=== PATIENT | female | born 1980 | race Caucasian/White ===

== ENCOUNTER 2017-03-05 18:27 | Emergency (ER) | payer BC ==
[~2017-03-05] VITALS: Ht 152.4 cm; Wt 50.0 kg
[2017-03-05 18:41] VITALS: BP 170/79; PULSE 130; RESP 18; TEMP 100.7; O2SAT 99
[2017-03-05] MEDS ORDERED: SODIUM CHLOR 0.9% 1000 ML INJ 1,000 ML IV ONE (19:12)
[2017-03-05] MEDS ORDERED: ONDANSETRON HCL 4 MG/2 ML VIAL IVP ONE (19:15)
--- NOTE | 2017-03-05 19:56 | PD ---
HPI . Stomach pains Chief Complaint: Dizziness Time Seen by Provider: 18:49 Travel History International Travel<30 days: No Contact w/Intl Traveler<30days: No Traveled to known affect area: No History of Present Illness HPI 36-year-old female presents complaining of stomach pain. Pain is localized to her navel and started at 3 PM. No radiation. Rates the pain as a 7-8 out of 10. Describes the pain as sharp and lasting 2-3 minutes. She has also had 5 episodes of emesis. Had some previous nausea which is now resolved. Patient's menstrual cycle started on February 15 but she had to take plan B on the . She had another menstrual cycle that started on the February 22 and is now coming to an end. Patient is unsure if this is related. Patient reports she has had similar episodes in the past but they have not been associated with fevers. Her last bowel movement was this morning. She is denying any diarrhea or vaginal bleeding. Reports subjective fevers. [facility] Past Medical History Medical History: Denies Significant Hx Tetanus Vaccination: Unknown ?: Not Past Surgical History Abdominal Surgery: Yes Social History Alcohol Use: No Tobacco Use: Yes Substance Use: No Allergies-Medications (Allergen,Severity, Reaction): Coded Allergies: No Known Allergies (Unverified , 03/05/17) Reported Meds & Prescriptions Reported Meds & Active Scripts Active No Active Prescriptions or Reported Medications Review of Systems Except as stated in HPI: all other systems reviewed are Neg General / Constitutional: Positive: Fever, Chills, Other (fatigue and disorientation) Gastrointestinal: Positive: Nausea, Vomiting, Abdominal Pain Physical Exam Narrative GENERAL: Awake and alert and in no acute distress. SKIN: Warm and dry. HEAD: Atraumatic. Normocephalic. EYES: Pupils equal and round. Extraocular movements are intact. ENT: No nasal bleeding or discharge. Mucous membranes pink and moist. NECK: Trachea midline. Neck is supple. CARDIOVASCULAR: Regular rhythm, tachycardic rate. RESPIRATORY: No accessory muscle use. Lungs are clear with full air movement throughout. GASTROINTESTINAL: Abdomen soft. Mild periumbilical tenderness. No guarding or rebound. Nondistended. MUSCULOSKELETAL: No obvious deformities. No edema. NEUROLOGICAL: Awake and alert. No obvious cranial nerve deficits. Motor grossly within normal limits. Normal speech. PSYCHIATRIC: Appropriate mood and affect; insight and judgment normal. Data Data Last Documented VS Vital Signs Date Time Temp Pulse Resp B/P Pulse Ox O2 Delivery O2 Flow Rate FiO2 03/05/17 18:41 100.7 130 18 170/79 99 Orders Urinalysis - C+S If Indicated (03/05/17 19:12) Sodium Chlor 0.9% 1000 Ml Inj (Ns 1000 M (03/05/17 19:12) Ondansetron Inj (Zofran Inj) (03/05/17 19:15) Ed Urine Pregnancytest Poc (03/05/17 19:12) Ibuprofen (Motrin) (03/05/17 20:30) Labs Laboratory Tests Test 03/05/17 20:00 Urine Color YELLOW Urine Turbidity CLEAR Urine pH 6.0 Urine Specific [place] 1.014 Urine Protein NEG mg/dL Urine Glucose (UA) NEG mg/dL Urine Ketones NEG mg/dL Urine Occult Blood NEG Urine Nitrite NEG Urine Bilirubin NEG Urine Urobilinogen LESS THAN 2.0 MG/DL Urine Leukocyte Esterase NEG Urine RBC 7 /hpf Urine WBC LESS THAN 1 /hpf Urine Squamous Epithelial 1 /hpf Cells Microscopic Urinalysis Comment CULT NOT INDICATED MDM Medical Decision Making Medical Screen Exam Complete: Yes Emergency Medical Condition: Yes Differential Diagnosis Differential diagnosis of abdominal pain includes but is not limited to gastritis, pancreatitis, hepatitis, gastroenteritis, gallbladder disease, constipation, urinary retention, UTI, peptic ulcer disease, diverticulitis or appendicitis Narrative Course Patient presents for evaluation and treatment of periumbilical abdominal pain associated with nausea and vomiting. She is febrile so the most likely diagnosis is viral gastroenteritis. She'll be treated with IV fluids and IV Zofran. UA and hCG are pending. Laboratory Tests Test 03/05/17 20:00 Urine Color YELLOW Urine Turbidity CLEAR Urine pH 6.0 Urine Specific [place] 1.014 Urine Protein NEG mg/dL Urine Glucose (UA) NEG mg/dL Urine Ketones NEG mg/dL Urine Occult Blood NEG Urine Nitrite NEG Urine Bilirubin NEG Urine Urobilinogen LESS THAN 2.0 MG/DL Urine Leukocyte Esterase NEG Urine RBC 7 /hpf Urine WBC LESS THAN 1 /hpf Urine Squamous Epithelial 1 /hpf Cells Microscopic Urinalysis Comment CULT NOT INDICATED test is negative. The patient has had no further emesis in the emergency department. The history, exam, diagnostic testing, and current condition do not suggest any significant pathology to warrant further testing, continued ED treatment, admission, or surgical evaluation at this point. The patient's condition is stable and appropriate for discharge. Diagnosis Primary Impression: Abdominal pain Qualified Code: R10.33 - Periumbilical abdominal pain Additional Impression: Vomiting Qualified Code: R11.2 - Non-intractable vomiting with nausea, unspecified vomiting type Patient Instructions: Abdominal Pain (ED), General Instructions Departure Forms: Tests/Procedures, Work Release Med/Other Pt SpecificInfo: Prescription(s) given Scripts Ondansetron (Zofran)4 Mg Tab4 Mg PO Q6HR PRN (NAUSEA OR VOMITING) #6 TAB Ref 0 Prov:Alisson Murguia MD 03/05/17 Disposition: 01 DISCHARGE HOME Condition: Stable Alisson Murguia MD Mar 05, 2017 19:56
[2017-03-05] MEDS ORDERED: IBUPROFEN 800 MG TAB PO ONE (20:30)
[2017-03-05 20:34] LABS: BLOOD, URINE NEG (NEG); COMMENT (UR) CULT NOT INDICATED; CULTURE IF INDICATED CULT NOT INDICATED; GLUCOSE,URINE NEG (NEG); KETONE, URINE NEG (NEG); NITRITE,URINE NEG (NEG); SQUAMOUS EPITHELIAL CELL URINE 1 /hpf (0-5); URINE COLOR YELLOW (YELLW/STRAW)
[2017-03-05] MEDS ORDERED: ZOFR4TAB PO (20:54)
== END 2017-03-05 21:05 | disposition home or self-care (01) ==
LOC: NEPD 18:27
DX: R10.33 Periumbilical pain (principal); R11.2 Nausea with vomiting, unspecified
CPT/HCPCS: 81001; 84703; 96361; 96374; 99284; J2405; J7030

== ENCOUNTER 2017-05-31 16:48 | Emergency (ER) | payer BC ==
[~2017-05-31] VITALS: Ht 152.4 cm; Wt 51.0 kg
[~2017-05-31 16:48] MED LIST: ZOFR4TAB PO
[2017-05-31 16:50] VITALS: BP 129/82; PULSE 87; RESP 18; TEMP 99.4; O2SAT 99
--- NOTE | 2017-05-31 18:58 | PD ---
HPI Chief Complaint: General Weakness Time Seen by Provider: 18:56 Travel History International Travel<30 days: No Contact w/Intl Traveler<30days: No Traveled to known affect area: No History of Present Illness HPI Patient comes in complaining of generalized weakness ongoing for a week. Patient is concerned she might be diabetic or . Patient denies any pain anywhere. Patient states that she had problems with hypoglycemia as a child and over the past week by time lunch feels like she starts getting a little jittery which doesn't really improve after eating. Patient denies anything making it worse. Denies any chest pain, shortness breath, fevers, loss change in bowel or bladder, numbness or tingling anywhere, headaches, dizziness, abdominal pain, or back pain. PFSH Past Medical History Asthma: Yes Diminished Hearing: No Genitourinary: Yes Tetanus Vaccination: > 5 Years Influenza Vaccination: No ?: Unknown LMP: 05/07/17 : 5 Para: 4 Past Surgical History Abdominal Surgery: Yes Gynecologic Surgery: Yes Social History Alcohol Use: Yes (ocassionally) Tobacco Use: Yes (1/2 pack per day) Substance Use: No Allergies-Medications (Allergen,Severity, Reaction): Coded Allergies: latex (Verified Allergy, Severe, swelling, 05/31/17) swelling Reported Meds & Prescriptions Reported Meds & Active Scripts Active No Active Prescriptions or Reported Medications Review of Systems Except as stated in HPI: all other systems reviewed are Neg Physical Exam Narrative GENERAL: Well-developed, well nourished, in no acute distress, and non-ill appearing. SKIN: Focused skin assessment warm and dry. HEAD: Atraumatic. Normocephalic. EYES: Pupils equal and round. EOMI. No scleral icterus. No injection or drainage. ENT: No nasal bleeding or discharge. Mucous membranes pink and moist. NECK: Trachea midline. No JVD. Supple. No nuclear rigidity. CARDIOVASCULAR: Regular rate and rhythm. No murmur appreciated. RESPIRATORY: No accessory muscle use. No respiratory distress. Clear to auscultation. Breath sounds equal bilaterally. GASTROINTESTINAL: Abdomen soft, non-tender, nondistended, and no guarding. Hepatic and splenic margins not palpable. Normal bowel sounds 4. No pulsatile mass. MUSCULOSKELETAL: No obvious deformities. No clubbing. No cyanosis. No edema. Full range of motion. NEUROLOGICAL: Awake and alert. No obvious cranial nerve deficits. Motor grossly within normal limits. Normal speech. PSYCHIATRIC: Appropriate mood and affect; insight and judgment normal. Data Data Last Documented VS Vital Signs Date Time Temp Pulse Resp B/P (MAP) Pulse Ox O2 Delivery O2 Flow Rate FiO2 05/31/17 20:12 05/31/17 18:59 97.8 78 17 99 05/31/17 16:50 Room Air Orders Orders Basic Metabolic Panel (Bmp) (05/31/17 18:55) Complete Blood Count With Diff (05/31/17 18:55) Urinalysis - C+S If Indicated (05/31/17 18:55) Iv Access Insert/Monitor (05/31/17 18:55) Ecg Monitoring (05/31/17 18:55) Oximetry (05/31/17 18:55) Sodium Chloride 0.9% Flush (Ns Flush) (05/31/17 19:00) Ed Urine Pregnancytest Poc (05/31/17 18:55) Magnesium (Mg) (05/31/17 18:55) Labs Laboratory Tests Test 05/31/17 18:50 05/31/17 19:00 Urine Color LIGHT-YELLOW Urine Turbidity CLEAR Urine pH 6.5 Urine Specific [place] 1.007 Urine Protein NEG mg/dL Urine Glucose (UA) NEG mg/dL Urine Ketones NEG mg/dL Urine Occult Blood NEG Urine Nitrite NEG Urine Bilirubin NEG Urine Urobilinogen LESS THAN 2.0 MG/DL Urine Leukocyte Esterase NEG Urine RBC LESS THAN 1 /hpf Urine WBC LESS THAN 1 /hpf Urine Squamous Epithelial Cells 2 /hpf Microscopic Urinalysis Comment CULT NOT INDICATED White Blood Count 11.9 TH/MM3 Red Blood Count 4.88 MIL/MM3 Hemoglobin 15.5 GM/DL Hematocrit 45.6 % Mean Corpuscular Volume 93.4 FL Mean Corpuscular Hemoglobin 31.7 PG Mean Corpuscular Hemoglobin Concent 33.9 % Red Cell Distribution Width 12.8 % Platelet Count 262 TH/MM3 Mean Platelet Volume 7.4 FL Neutrophils (%) (Auto) 71.9 % Lymphocytes (%) (Auto) 20.8 % Monocytes (%) (Auto) 6.6 % Eosinophils (%) (Auto) 0.5 % Basophils (%) (Auto) 0.2 % Neutrophils # (Auto) 8.6 TH/MM3 Lymphocytes # (Auto) 2.5 TH/MM3 Monocytes # (Auto) 0.8 TH/MM3 Eosinophils # (Auto) 0.1 TH/MM3 Basophils # (Auto) 0.0 TH/MM3 CBC Comment DIFF FINAL Differential Comment Blood Urea Nitrogen 12 MG/DL Creatinine 0.81 MG/DL Random Glucose 108 MG/DL Calcium Level 8.6 MG/DL Magnesium Level 2.3 MG/DL Sodium Level 139 MEQ/L Potassium Level 3.8 MEQ/L Chloride Level 105 MEQ/L Carbon Dioxide Level 28.5 MEQ/L Anion Gap 6 MEQ/L Estimat Glomerular Filtration Rate 81 ML/MIN MDM Medical Decision Making Medical Screen Exam Complete: Yes Emergency Medical Condition: Yes Differential Diagnosis Anemia, , UTI, electrolyte abnormality, other Narrative Course Patient in no obvious distress upon re-evaluation. Patient states that this seems to happen about to start her menstrual cycle. All pertinent laboratory/ Radiology result(s) discussed with patient. Discussed patient with Dr. Mike prior to discharge, who is in agreement with plan of care and disposition. Any questions/concerns in reference to patient diagnosis/ condition discussed and clarified prior to patient's discharge. Reinforced sheer importance of close follow up with patient's primary physician or primary care clinic. Instructed patient to return to ED immediately, if symptoms return/ worsen. Patient showed understanding of above instructions. Further instructions and recommendations were detailed in discharge paperwork. Patient ambulated without difficulty out of ED at discharge. Diagnosis Primary Impression: Generalized weakness Patient Instructions: General Instructions, Weakness (ED) Additional Instructions: Follow-up with your primary care physician next week for reevaluation. Return to the emergency department if symptoms get worse. Scripts No Active Prescriptions or Reported Meds Disposition: 01 DISCHARGE HOME Condition: Stable Neo Velazquez May 31, 2017 18:58
[2017-05-31 18:59] VITALS: BP 119/68; PULSE 78; RESP 17; TEMP 97.8; O2SAT 99
[2017-05-31] MEDS ORDERED: SODIUM CHLORIDE 0.9% FLUSH 10 ML FLUSH IV FLUSH PRN (19:00)
[2017-05-31 19:27] LABS: BLOOD, URINE NEG (NEG); COMMENT (UR) CULT NOT INDICATED; CULTURE IF INDICATED CULT NOT INDICATED; GLUCOSE,URINE NEG (NEG); KETONE, URINE NEG (NEG); NITRITE,URINE NEG (NEG); PH, URINE 6.5 (5.0-8.5); SQUAMOUS EPITHELIAL CELL URINE 2 /hpf (0-5); URINE COLOR LIGHT-YELLOW (YELLW/STRAW)
[2017-05-31 19:29] LABS: AUTOMATED NEUTROPHIL # 8.6 TH/MM3 (1.8-7.7); BASOPHIL % 0.2 % (0.0-2.0); EOSINOPHIL # 0.1 TH/MM3 (0-0.4); EOSINOPHIL % 0.5 % (0.0-4.0); HEMATOCRIT 45.6 % (35.0-46.0); HEMO FLAGS DIFF FINAL; LYMPH % 20.8 % (9.0-44.0); LYMPHOCYTE # 2.5 TH/MM3 (1.0-4.8); MEAN CELL VOLUME 93.4 FL (80.0-100.0); MEAN CORPUSCULAR HEMOGLOBIN 31.7 PG (27.0-34.0); MEAN CORPUSCULAR HGB CONC 33.9 % (32.0-36.0); MONO % 6.6 % (0.0-8.0); NEUT % 71.9 % (16.0-70.0); PLATELET COUNT 262 TH/MM3 (150-450); RED BLOOD COUNT 4.88 MIL/MM3 (4.00-5.30); RED CELL DISTRIBUTION WIDTH 12.8 % (11.6-17.2); WHITE BLOOD COUNT 11.9 TH/MM3 (4.0-11.0)
[2017-05-31 19:45] LABS: BICARBONATE 28.5 MEQ/L (21.0-32.0); MAGNESIUM 2.3 MG/DL (1.5-2.5); POTASSIUM 3.8 MEQ/L (3.5-5.1)
== END 2017-05-31 20:13 | disposition home or self-care (01) ==
LOC: NEPE 16:48
DX: R53.1 Weakness (principal); J45.909 Unspecified asthma, uncomplicated; Z72.0 Tobacco use
CPT/HCPCS: 80048; 81001; 83735; 84703; 85025; 99283

== ENCOUNTER → 2017-07-17 | Outpatient (CLI) | payer BC ==
--- NOTE | 2017-07-17 13:55 | EKG ---
Date Performed: 07/17/2017 Time Performed: 12:51:30 PTAGE: 37 years EKG: Sinus rhythm NORMAL ECG NO PREVIOUS TRACING DOCTOR: Bernardo Krishnan Interpretating Date/Time 07/17/2017 13:54:53
== END ==
LOC: HCAV 12:26
DX: Z01.811 Encounter for preprocedural respiratory examination (principal)
CPT/HCPCS: 93005